=== PATIENT | male | born 1975 | race Two or more races ===

== ENCOUNTER → 2025-01-06 | Outpatient (CLI) | payer OTHER, MEDICAID, SELFPAY ==
--- NOTE | 2025-01-06 15:39 | XR_ITS ---
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
== END | disposition home or self-care (01) ==
PROVIDERS: PCP Family Medicine; Referring Provider General Practice; Visit Provider General Practice
DX: M20.011 Mallet finger of right finger(s) (principal)
CPT/HCPCS: 73130

== ENCOUNTER 2025-02-04 20:26 | Emergency (ER) | payer MEDICAID, SELFPAY ==
[2025-02-04 21:09] VITALS: BP 170/117; BP 172/111; PULSE 68; RESP 20; TEMP 36.4; O2SAT 95
--- NOTE | 2025-02-04 21:22 | XR_ITS ---
Examination: CT abdomen and pelvis without contrast. Coronal 3-D reconstructions. Sagittal 2-D reconstructions. Date and time of exam:February 04, 2025 2156 hours Comparison July 01, 2023 INDICATIONS: Left flank pain today, history kidney stones CTDI: vol (mGy): 5.85 DLP: (mGycm): 289 Technique: Axial images of the abdomen have been obtained, 3 mm slice thickness Intravenous contrast material has not been administered. Low dose protocols were performed. One or more of the following dose reduction techniques were used; automated exposure control, adjustment of the mA and/or KV according to patient size, use of iterative reconstruction technique. Findings: No focal liver or splenic lesions No gallstones No pancreatic or adrenal mass 2 mm 4 mm left renal calculi Moderate left hydronephrosis 3 mm proximal left ureteral calculus Mild right hydronephrosis 1 mm proximal right ureteral calculus Normal appendix Tiny bladder calculi Bladder wall thickening up to 12 mm IMPRESSION: Moderate left hydronephrosis, 3 mm proximal left ureteral calculus Mild right hydronephrosis, 1 mm proximal right ureteral calculus Tiny bladder calculi Prominent cystitis pattern
[2025-02-04] MEDS: ONDANSETRON ODT 4 MG TABRAP PO (21:30)
[2025-02-04] MEDS: KETOROLAC INJ 60 MG/2 ML VIAL IM (21:31)
[2025-02-04 21:59] LABS: Collection Type, Urine Clean Catch; Squamous Epithelial Cell,Urine 0 /hpf (0-5)
[2025-02-04 21:59] LABS: Basophils # (Auto) 0.1 Thou/mm3 (0.0-0.2); Basophils % (Auto) 1 % (0-2.5); Eosinophils # (Auto) 0.7 Thou/mm3 (0.0-0.5); Eosinophils % (Auto) 8 % (0-10); Hematocrit 43.2 % (41.0-53.0); Hemoglobin 14.6 g/dL (13.5-16.0); Immature Granulocytes Auto 0.03 Thou/mm3 (0.00-0.00); Lymphocytes # (Auto) 2.0 Thou/mm3 (1.0-4.8); Lymphocytes % (Auto) 22 % (10-50); Mean Corpuscular HGB Conc 33.8 g/dl (31.0-37.0); Mean Corpuscular Hemoglobin 30.4 pg (25.0-35.0); Mean Corpuscular Volume 90 fL (80-100); Monocytes # (Auto) 0.9 Thou/mm3 (0.0-0.8); Monocytes % (Auto) 10 % (0-12); Neutrophils # (Auto) 5.3 Thou/mm3 (1.8-7.7); Neutrophils % (Auto) 59 % (37-80); Nucleated Red Blood Cell # 0.00 Thou/mm3 (0.00-0.00); Nucleated Red Blood Cell % 0 /100 WBC (0); Platelet Count 242 Thou/mm3 (140-440); RDW Standard Deviation 43.6 fL (35.1-43.9); Red Blood Count 4.80 Miln/mm3 (4.50-5.90); White Blood Count 9.0 Thou/mm3 (3.8-10.6)
[2025-02-04 22:19] LABS: Anion Gap 9 (7-16); Carbon Dioxide 30.3 mMol/L (20.0-31.0); Chloride 103 mMol/L (98-107); Potassium 3.8 mMol/L (3.4-5.1); Sodium 142 mMol/L (136-145)
[2025-02-04 22:20] LABS: Amphetamine/Methamp Scrn,U Positive (Negative); Barbiturate Screen,Urine Negative (Negative); Benzodiazepines Screen,Urine Negative (Negative); Benzoylecgonine Screen, Ur Negative (Negative); Fentanyl Screen,Urine Negative (Negative); Opiate Screen,Urine Positive (Negative); THC Screen,Urine Negative (Negative)
[2025-02-04 22:20] LABS: Alanine Aminotransferase 26 U/L (10-49); Albumin, Serum 4.1 gm/dL (3.5-5.0); Albumin/Globulin Ratio 1.4 (1.2-2.2); Alkaline Phosphatase 107 U/L (46-116); Aspartate Amino Transferase 26 U/L (0-34); BUN/Creatinine Ratio 7 Ratio (12-20); Bilirubin,Total 0.6 mg/dL (0.3-1.2); Blood Urea Nitrogen 11 mg/dL (9-23); Calcium 9.1 mg/dL (8.3-10.6); Calcium (Corrected) 9.1 mg/dL (8.5-10.1); Creatinine (Component) 1.6 mg/dL (0.6-1.3); Globulin 3.0 gm/dL (2.3-3.5); Glucose 108 mg/dL (74-106); Lipase 26 U/L (12-53); Osmolality,Calculated 283 (275-295); Total Protein 7.1 gm/dL (5.7-8.2); eGFR 52 See Note
[2025-02-04 22:23] LABS: Bilirubin,Urine Negative (Negative); Blood,Urine 3+ (Negative); Clarity,Urine Turbid (Clear/Hazy); Color,Urine Brown (Lt Yel-Yel); Glucose, Urine Negative (Negative); Ketones,Urine Negative (Negative); Leukocyte Esterase,Urine Positive (Negative); Nitrite,Urine Negative (Negative); PH,Urine 6.0 (5.0-7.0); Protein,Urine 1+ (Neg - Trace); RBC,Urine 8545 /hpf (0-3); Specific Gravity,Urine 1.019 (1.001-1.035); Urobilinogen,Urine Negative mg/dL (0.0-1.0); WBC,Urine 257 /hpf (0-5)
[2025-02-04] MEDS: RINGERS LACTATED 1000 ML 1,000 ML 999 ML IV (23:36)
[2025-02-04] MEDS: cefTRIAXone/D5w 1gm IV premix 1 GM/50 ML BAG IV (23:37)
[2025-02-04] MEDS: TAMSULOSIN HCL 0.4 MG CAPSULE PO (23:46)
[2025-02-04 23:55] VITALS: BP 131/81; PULSE 63; RESP 18; TEMP 36.4; O2SAT 99
[2025-02-05 00:50] LABS: Anion Gap 6 (7-16); BUN/Creatinine Ratio 9 Ratio (12-20); Blood Urea Nitrogen 14 mg/dL (9-23); Calcium 9.0 mg/dL (8.3-10.6); Carbon Dioxide 32.2 mMol/L (20.0-31.0); Chloride 104 mMol/L (98-107); Creatinine (Component) 1.6 mg/dL (0.6-1.3); Glucose 108 mg/dL (74-106); Osmolality,Calculated 284 (275-295); Potassium 4.0 mMol/L (3.4-5.1); Sodium 142 mMol/L (136-145); eGFR 52 See Note
--- NOTE | 2025-02-05 01:20 | EDNOTE_ITS ---
ED Back Injury Pain RME/HPI General Chief Complaint: Abdominal Pain Stated Complaint: LEFT FLANK PAIN Time Seen by Provider: 02/04/25 21:21 Arrival date/time: 02/04/25 20:26 49M with history of drug use presents to ED with several days of L flank pain, N/V, and hematuria/dysuria. Limitations: no limitations Related Data Previous Rx's ?Medication ?Instructions ?Recorded acetaminophen 650 mg 650 mg PO Q8H PRN fever or p ain 11/15/17 tablet,extended release #30 tabs ibuprofen 600 mg tablet 600 mg PO Q8H PRN fever or p ain 11/15/17 #30 tabs loratadine-pseudoephedrine ER 10 1 tab PO Q24H #10 tab s 11/15/17 mg-240 mg tablet,extended [id number] (Claritin-D 24 Hour) promethazine-DM 6.25 mg-15 mg/5 mL 5 ml PO Q6H PRN cou gh #180 mL 11/15/17 oral syrup ibuprofen 800 mg tablet (IBU) 800 mg PO Q8H PRN pain # 30 tabs 07/01/23 ondansetron 4 mg disintegrating 4 mg PO Q8H PRN nausea and 07/01/23 tablet vomiting #20 tabs tamsulosin 0.4 mg capsule (Flomax) 0.4 mg PO QDAY #7 c aps 07/01/23 cefuroxime axetil 500 mg tablet 500 mg PO BID 7 days # 14 tabs 02/05/25 ondansetron 4 mg disintegrating 4 mg PO Q8H PRN nausea and 02/05/25 tablet vomiting #14 tabs tamsulosin 0.4 mg capsule (Flomax) 0.4 mg PO QDAY #20 caps 02/05/25 Allergies Allergy/AdvReac Type Severity Reaction Status Date / Time No Known Allergies Allergy Verified 02/04/25 20:27 Review of Systems Review of Systems Systems Reviewed: All systems reviewed, normal except as documented Constitutional Constitutional: Reports system reviewed and no additional complaints, except as documented, Denies fever(s) and Denies headache(s) ENT Ears, Nose, Mouth, and Throat: Denies disequilibrium and Denies headache(s) Cardiovascular Cardiovascular: Reports system reviewed and no additional complaints, except as documented, Denies chest pain and Denies dyspnea Respiratory Respiratory: Reports system reviewed and no additional complaints, except as documented, Denies cough and Denies dyspnea Gastrointestinal Gastrointestinal: Reports system reviewed and no additional complaints, except as documented, Denies abdominal pain, Denies nausea and Denies vomiting Genitourinary Genitourinary: Reports as per HPI, Reports dysuria, Reports flank pain and Reports hematuria Neurologic Neurologic: Reports system reviewed and no additional complaints, except as documented, Denies confusion, Denies disequilibrium and Denies headache(s) Psychiatric Psychiatric: Denies confusion Past Medical History Past Medical History CARDIAC: Negative Cardiac Disorders or Congestive Heart Failure RESPIRATORY: Negative Chronic Obstructive Pulmonary Disease (COPD) or Asthma GENITOURINARY: Negative Renal Disease ENDOCRINE: Negative Diabetes Mellitus Type 1 or Diabetes Mellitus Type 2 HEMATOLOGIC: Negative Sickle Cell Disease Social History SMOKING STATUS: Current every day smoker ED Exam General Limitations: Present no limitations General appearance: Present alert and in distress Head Head exam: Present atraumatic Eye Eye exam: Present normal appearance, PERRL and EOMI ENT ENT exam: Present normal exam, normal oropharynx and mucous membranes moist Neck Neck exam: Present normal inspection, full ROM and trachea midline Chest Chest inspection: Present normal inspection and symmetric chest wall rise Respiratory Respiratory exam: Present normal lung sounds bilaterally Cardiovascular Cardiovascular exam: Present regular rate, normal rhythm and normal heart sounds Abdominal Exam Abdominal exam: Present soft and normal bowel sounds Extremities Exam Extremities exam: Present normal inspection and full ROM Back Exam Back exam: Present normal inspection and full ROM Neurological Exam Neurological exam: Present alert, oriented X3 and CN II-XII intact Psychiatric Psychiatric exam: Present normal affect and normal mood Skin Skin exam: Present warm, dry, intact and normal color Course Quality Measures none Orders Category Date Time Status Insert IV NOW Care 02/04/25 23:[address] abdomen pelvis wo con Stat Exams 02/04/25 21:22 Completed BMP [Basic Metabolic Panel] Stat Lab 02/05/25 00:37 Completed BMP [Basic Metabolic Panel] Stat Lab 02/05/25 00:58 Completed CBC Stat Lab 02/04/25 21:34 Completed CMP [Comprehensive Metabolic Panel] Stat Lab 02/04/25 21:34 Completed Drug Screen,Urine Stat Lab 02/04/25 21:24 Completed Lipase Stat Lab 02/04/25 21:34 Completed UA [Urinalysis] Stat Lab 02/04/25 21:24 Completed Urine Culture Stat Lab 02/04/25 21:24 Received Ketorolac Inj [Toradol Inj] Med 02/04/25 21:21 Discontinued 60 mg IM X1 ONE Ondansetron Odt [Zofran Odt] Med 02/04/25 21:21 Discontinued 4 mg PO X1 ONE Ringers Lactated 1000 ml [Lactated Ringers] 1,000 ml Med 02/04/25 23:01 Discontinued IV 999 mls/hr Tamsulosin HCl [Flomax] Med 02/04/25 23:32 Discontinued 0.4 mg PO X1 ONE cefTRIAXone/D5w 1gm IV premix [Rocephin/D5w 1gm IV Med 02/04/25 23:02 Discontinued premix] 1 gm in 50 ml IV X1 Vital Signs Vital signs: Vital Signs Temperature 97.5 F 02/04/25 21:09 Pulse Rate 68 02/04/25 21:09 Respiratory Rate 20 02/04/25 21:09 Blood Pressure 170/117 H 02/04/25 21:09 Pulse Oximetry (%) 95 02/04/25 21:09 Oxygen Delivery Method Room Air 02/04/25 21:09 O2 at 95% on RA and WNLs Back Pain / Injury MDM Narrative MDM Narrative:: 49M with history of drug use presents to ED with several days of L flank pain, N/V, and hematuria/dysuria. Physical exam reveals L CVA tenderness. Patient is afebrile, alert, but appears to be in pain. CT reveals 3mm and 1mm kidney stones. CMP unremarkable except for Cr of 1.6. UA suggests UTI. Meth +. Cr reduced to 1.5 after 1L NS. Meds and industrial relations counselor given. Patient data External records reviewed:: [facility] previous records Clinical information provided by:: patient Social determinants that could affect healthcare access:: substance use Patient has the following chronic illnesses:: meth use How is presenting disease/condition affected by chronic disease/condition?: exacerbated by Evaluation data The following diagnostics were reviewed and interpreted by me:: lab results and radiology exam(s) Lab and/or radiology exams considered but not ordered:: ordered Interpretation Summary: above Medications / Prescriptions Medications or Prescriptions considered but not ordered:: ordered Medication administrations:: Medication Administration History Discontinued Medications Lactated Ringer's (Lactated Ringers) 1,000 mls @ 999 mls/hr IV .Q1H1M ONE Stop: 02/05/25 00:01 Last Infusion: 02/05/25 00:37 Dose: Infused Documented By: Admin: 02/04/25 23:36 Dose: 999 mls/hr Documented By: CVL Ceftriaxone Sodium/Dextrose (Rocephin/D5w 1gm Iv Premix) 1 gm in 50 mls @ 100 mls/hr IV X1 ONE Stop: 02/04/25 23:31 Last Infusion: 02/05/25 00:11 Dose: Infused Documented By: Admin: 02/04/25 23:37 Dose: 100 mls/hr Documented By: CVL Ketorolac Tromethamine (Ketorolac Inj 60 Mg/2 Ml Vial) 60 mg IM X1 ONE Stop: 02/04/25 21:22 Last Admin: 02/04/25 21:31 Dose: 60 mg Documented By: FF Ondansetron HCl (Ondansetron Odt 4 Mg Tabrap) 4 mg PO X1 ONE; Protocol Stop: 02/04/25 21:22 Last Admin: 02/04/25 21:30 Dose: 4 mg Documented By: FF Tamsulosin HCl (Tamsulosin Hcl 0.4 Mg Capsule) 0.4 mg PO X1 ONE Stop: 02/04/25 23:33 Last Admin: 02/04/25 23:46 Dose: 0.4 mg Documented By: CVL above Consultations Consultation(s) initiated? (list below): No Diagnosis Differential diagnosis back pain/injury: lumbar radiculopathy, sciatica, strain of lumbar region, renal colic, pyelonephritis, thoracic back pain, AAA, discitis and other (kidney stone and UTI) Most likely diagnosis given after review of the tests above:: kidney stone and UTI Admission Indicated Admission indicated?: not indicated Admission Request Was there a request for admission?: No Disposition Plan Disposition Plan: Discharge Discharge Attestation Discharge Attestation: The patient and all family members were given an opportunity to ask questions and understood the discharge instructions. Discharge instructions specifically effects, indications for sooner follow up or return to the emergency department, and the expected course of current diagnosis. Patient condition: Stable Discharge Plan Plan Patient Disposition: HOME (Self Care) Discharge Disposition comment: Stable Prescriptions/Referrals Prescriptions/Med Rec: New tamsulosin [Flomax] 0.4 mg capsule 0.4 mg PO QDAY Qty: 20 0RF cefuroxime axetil 500 mg tablet 500 mg PO BID 7 Days Qty: 14 0RF ondansetron 4 mg tablet,disintegrating 4 mg PO Q8H PRN (Reason: nausea and vomiting) Qty: 14 0RF No Action promethazine-DM 6.25-15 mg/5 mL syrup 5 ml PO Q6H PRN (Reason: cough) Qty: 180 0RF Rx Instructions: 5-10ml PO Q6-8 hours prn cough acetaminophen 650 mg tablet extended release 650 mg PO Q8H PRN (Reason: fever or pain) Qty: 30 0RF Rx Instructions: swallow whole; do not crush, chew, break, dissolve, cut, or open loratadine-pseudoephedrine [Claritin-D 24 Hour] 10-240 mg tablet extended release 24 hr 1 tab PO Q24H Qty: 10 0RF ibuprofen 600 mg tablet 600 mg PO Q8H PRN (Reason: fever or pain) Qty: 30 0RF Rx Instructions: prn pain / fever tamsulosin [Flomax] 0.4 mg capsule 0.4 mg PO QDAY Qty: 7 0RF ibuprofen [IBU] 800 mg tablet 800 mg PO Q8H PRN (Reason: pain) Qty: 30 0RF ondansetron 4 mg tablet,disintegrating 4 mg PO Q8H PRN (Reason: nausea and vomiting) Qty: 20 0RF Referrals: No Primary/Family,Physician [Primary Care Provider] - In 1 week Problem List Clinical Impression: Kidney stone, UTI (urinary tract infection) Patient/Caregiver Discharge Instructions Education Materials: ED Bladder Infection, Male (Adult), ED Kidney Stone w/ Colic Additional Instructions: Please follow-up with PCP within 24-48 hours and return immediately if symptoms worsen. NSAIDs like ibuprofen tend to work better for this type of pain. Print Language: Armenian Stand Alone Forms: Patient Portal Info Letter PA/CHAIN OFFBEARER Supervising Physician PA/CHAIN OFFBEARER Supervising Physician: Dr. Contreras
[2025-02-05 01:24] LABS: Anion Gap 7 (7-16); BUN/Creatinine Ratio 8 Ratio (12-20); Blood Urea Nitrogen 12 mg/dL (9-23); Calcium 8.6 mg/dL (8.3-10.6); Carbon Dioxide 29.7 mMol/L (20.0-31.0); Chloride 104 mMol/L (98-107); Creatinine (Component) 1.5 mg/dL (0.6-1.3); Glucose 144 mg/dL (74-106); Osmolality,Calculated 283 (275-295); Potassium 3.7 mMol/L (3.4-5.1); Sodium 141 mMol/L (136-145); eGFR 57 See Note
[2025-02-05 01:33] VITALS: RESP 16
== END 2025-02-05 01:34 | disposition home or self-care (01) ==
PROVIDERS: Physician Assistant; Emergency Provider Emergency Medicine
DX: N13.6 Pyonephrosis (principal); N21.0 Calculus in bladder
CPT/HCPCS: 36415; 74176; 80048; 80053; 80307; 81001; 83690; 85025; 87086; 96365; 96372; 99283; J0696; J1885; J7120; Q0162; A9270